=== PATIENT | male | born 1985 ===

== ENCOUNTER → 2019-08-10 | Outpatient (REF) | payer BC ==
[2019-08-10 12:04] LABS: SEMEN APPEARANCE OPAQUE (OPAQUE); SEMEN VISCOSITY VISCOUS (LIQUID); SEMEN VOLUME 4.6 ml (2.0-5.0); SPERM CONCENTRATION 2.7 M/ml (>=15.0); WBC CONCENTRATION >1 M/ml (<=1 M/ml)
== END ==
LOC: M LAB REF 11:32
PROVIDERS: ATTEND Specialist
DX: Z31.41 Encounter for fertility testing (principal)

== ENCOUNTER → 2025-09-04 | Outpatient (REF) | payer OTHER ==
[2025-09-04 09:37] LABS: SEMEN APPEARANCE OPAQUE (OPAQUE)
[2025-09-04 09:38] LABS: SEMEN VISCOSITY LIQUID (LIQUID); SEMEN VOLUME 3.0 ml (2.0-5.0); SPERM CONCENTRATION 8.1 M/ml (>=15.0); WBC CONCENTRATION <=1 M/ml (<=1 M/ml)
[2025-09-04 09:39] LABS: TOTAL PROGRESSIVE SPERM 3.3 M/Ejac.
== END ==
LOC: M LAB REF 09:20
PROVIDERS: ATTEND Specialist
DX: Z31.41 Encounter for fertility testing (principal)